=== PATIENT | male | born 1995 | race Caucasian/White ===

== ENCOUNTER 2017-05-27 10:40 | Emergency (ER) | payer SELFPAY ==
[2017-05-27 10:51] VITALS: TEMP 98.1
[2017-05-27] MEDS ORDERED: KETOROLAC TROMETHAMINE INJ 30 MG/ML VIAL IM ONE (11:22)
--- NOTE | 2017-05-27 11:25 | ED.PDOC ---
History of Present Illness - General Chief Complaint: Back Pain or Injury Time Seen by Provider: 05/27/17 11:13 Source: patient Exam Limitations: no limitations - History of Present Illness Initial Comments: Patient presents with back pain for two days. Intermittent. It started suddenly and was worse with laying down to sleep last night. The pain is lumbar with radiation to the left leg. Sharp in nature. Worse with movement, better with rest. He had a previous episodes one year ago that resolved on its own. No urinary symptoms. No associate symptoms. Timing/Duration: 24 hours Severity: moderate Improving Factors: rest Worsening Factors: movement Associated Symptoms: denies symptoms Allergies/Adverse Reactions: Allergies NO KNOWN ALLERGY Allergy (Verified 05/27/17 11:26) Home Medications: Ambulatory Orders Cyclobenzaprine HCl [Flexeril] 10 mg PO TID #20 tab 05/27/17 Meloxicam 7.5 mg PO DAILY #30 tab 05/27/17 Review of Systems - Review of Systems Respiratory: States: no symptoms reported Cardiology: States: no symptoms reported Gastrointestinal/Abdominal: States: no symptoms reported Genitourinary: States: no symptoms reported Musculoskeletal: States: see HPI Skin: States: no symptoms reported Neurological: States: no symptoms reported Endocrine: States: no symptoms reported Hematologic/Lymphatic: States: no symptoms reported Past Medical History (General) - Patient Medical History Hx Seizures: No Hx Stroke: No Hx Asthma: No Hx Cardiac Disorders: No Hx Congestive Heart Failure: No Hx Diabetes: No Hx Gastroesophageal Reflux: No Surgical History: no surgical history - Vaccination History Hx Influenza Vaccination: No Hx Pneumococcal Vaccination: No Family Medical History - Family History Mother Family History: No Known Physical Exam - Physical Exam General Appearance: Alert Respiratory: chest non-tender, lungs clear, no respiratory distress Cardiovascular/Chest: normal peripheral pulses, regular rate, rhythm Peripheral Pulses: dorsalis pedis,right: 2+, dorsalis pedis,left: 2+, posterior tibialis,right: 2+, posterior tibialis,left: 2+ Gastrointestinal/Abdominal: normal bowel sounds, non tender, soft Back Exam: no CVA tenderness, no vertebral tenderness Extremity: normal range of motion, non-tender, other - Straight leg raise positive. Cross leg raise negative. Flexion and heel walking exacerbate the pain. No pain with rotation of the torso. Neurologic: no motor/sensory deficits DTR: 2+: Patellar, left, Patellar, right Skin Exam: normal color Progress - Progress Progress: 05/27/17 11:27 Toradol 30 mg IM x one. RX for flexeril and meloxicam. Departure - Departure Clinical Impression: Sciatica Disposition: Discharge to Home or Self Care Condition: Good Departure Forms: ED Discharge - Pt. Copy, Patient Portal Self Enrollment Instructions: DI for Low Back Pain Diet: resume usual diet Activity: increase activity as tolerated Prescriptions: Cyclobenzaprine HCl [Flexeril] 10 mg PO TID #20 tab Meloxicam 7.5 mg PO DAILY #30 tab Home Medications: Ambulatory Orders Cyclobenzaprine HCl [Flexeril] 10 mg PO TID #20 tab 05/27/17 Meloxicam 7.5 mg PO DAILY #30 tab 05/27/17
[2017-05-27 11:48] VITALS: BP 146/89; O2SAT 98
== END 2017-05-27 11:49 | disposition home or self-care (01) ==
LOC: ER 10:40
DX: M54.30 Sciatica, unspecified side (principal)